=== PATIENT | male | born 1955 | race Native Hawaiian/Other Pacific Islander ===

== ENCOUNTER 2020-06-27 23:55 | Emergency (ER) | payer OTHER ==
[~2020-06-27] VITALS: Ht 172.7 cm; Wt 131.5 kg
[2020-06-27 23:55] VITALS: BP 119/52; TEMP 98
[2020-06-28 00:37] LABS: POTASSIUM 4.6 mmol/L (3.6-5.2)
[2020-06-28 00:42] LABS: PLATELET COUNT 183 K/uL (142-355)
[2020-06-28] MEDS ORDERED: TYLENOL325 MG PO (01:52)
[2020-06-28] MEDS ORDERED: LORA0.5T17 PO (01:53)
[2020-06-28] MEDS ORDERED: LIPITOR40 MG PO (01:55)
[2020-06-28] MEDS ORDERED: CARV12.5 PO (02:08)
[2020-06-28] MEDS ORDERED: D325 MCG PO (02:10)
[2020-06-28] MEDS ORDERED: FAMO20TA4 PO (02:11)
[2020-06-28] MEDS ORDERED: TAMS0.4C PO (02:12)
[2020-06-28] MEDS ORDERED: FLUTICASONE PRO1 AE1 INH (02:15)
[2020-06-28] MEDS ORDERED: NEURONTIN 100M100 MG PO (02:16)
[2020-06-28] MEDS ORDERED: INSULIN LI100 UNIT/1 SC (02:18)
[2020-06-28] MEDS ORDERED: ISOS30TA17 PO (02:19)
[2020-06-28] MEDS ORDERED: INSUINJP SC (02:21)
[2020-06-28] MEDS ORDERED: MIRALAX17 GM/SCOO PO (02:22)
[2020-06-28] MEDS ORDERED: LISI20TA11 PO (02:22)
[2020-06-28] MEDS ORDERED: SENNA PLUS 50-81 CAP PO (02:23)
[2020-06-28] MEDS ORDERED: SERT100T PO (02:25)
[2020-06-28] MEDS ORDERED: TRADJENTA5 M1 PO (02:26)
[2020-06-28] MEDS ORDERED: TRAZODONE HYDR100 MG PO (02:27)
[2020-06-28] MEDS ORDERED: ZIPRASIDONE HYD80 MG PO (02:28)
== END 2020-06-28 01:22 | disposition other institution (70) ==
LOC: ED 23:58
PROVIDERS: Family Medicine
DX: R45.851 Suicidal ideations (principal); F32.89 Other specified depressive episodes
CPT/HCPCS: 36415; 80053; 81000; 85027; 87635; 93005; 99283; U0003

== ENCOUNTER 2021-04-16 20:49 | Emergency (ER) | payer OTHER ==
[~2021-04-16] VITALS: Ht 180.3 cm; Wt 147.0 kg
[~2021-04-16 20:49] MED LIST: CARV12.5 PO; D325 MCG PO; DIVA250T PO; DIVALPROEX500 MG PO; FAMO20TA4 PO; FLUTICASONE PRO1 AE1 INH; FOLI1TAB26 PO; GABA100C2 PO; INSUINJ20 SC; INSUINJP SC; INSULIN LI100 UNIT/1 SC; ISOS30TA17 PO; LIPITOR80 MG PO; LISI20TA11 PO; LORA0.5T17 PO; MIRALAX17 GM/SCOO PO; NEURONTIN 100M100 MG PO; SENNA PLUS 50-81 CAP PO; SERT100T PO; SERT50TA PO; TAMS0.4C PO; TRADJENTA5 M1 PO; TRAZODONE HYDR100 MG PO; TYLENOL325 MG PO; ZIPRASIDONE HYD80 MG PO
[2021-04-16 20:52] VITALS: BP 126/70; TEMP 98.1
[2021-04-16 21:16] LABS: PLATELET COUNT 158 K/uL (142-355)
[2021-04-16 21:28] LABS: POTASSIUM 4.3 mmol/L (3.6-5.2)
[2021-04-17] MEDS ORDERED: ASPIRIN LOW DOS81 MG PO (07:45)
[2021-04-17] MEDS ORDERED: CLOPIDOGREL75 MG PO (07:49)
[2021-04-17] MEDS ORDERED: CELEXA20 MG PO (07:49)
[2021-04-17] MEDS ORDERED: DIVALPROEX500 M1 PO ×2 (07:57→08:56)
[2021-04-17] MEDS ORDERED: EZET10TA13 PO (07:59)
[2021-04-17] MEDS ORDERED: FOLIC ACID400 MCG PO (08:01)
[2021-04-17] MEDS ORDERED: LANTUS100 UNIT/M SC (08:03)
[2021-04-17] MEDS ORDERED: FUROSEMIDE20 MG PO (08:04)
[2021-04-17] MEDS ORDERED: COZAAR100 MG PO (08:05)
[2021-04-17] MEDS ORDERED: PROVERA5 MG PO (08:06)
[2021-04-17] MEDS ORDERED: MELATONIN5 M4 PO (08:07)
[2021-04-17] MEDS ORDERED: MULTIVITAMI1 PO (08:08)
[2021-04-17] MEDS ORDERED: POTASSIUM CHLO20 ME1 PO (08:10)
[2021-04-17] MEDS ORDERED: TRAZODONE HYDR100 MG PO (08:11)
[2021-04-17] MEDS ORDERED: TRADJENTA5 M1 PO (08:11)
[2021-04-17] MEDS ORDERED: VITAMIN B-COMPL1 TAB PO (08:13)
[2021-04-17] MEDS ORDERED: DOK100 MG PO (08:14)
[2021-04-17] MEDS ORDERED: MEMANTINE HYDRO10 MG PO (08:15)
[2021-04-17] MEDS ORDERED: METO50TA27 PO (08:16)
[2021-04-17] MEDS ORDERED: HYDRALAZINE HY100 MG PO (08:17)
[2021-04-17] MEDS ORDERED: INSU100P SC ×2 (08:19→09:10)
[2021-04-17] MEDS ORDERED: CLON0.1T16 PO (08:22)
[2021-04-17] MEDS ORDERED: APAP325 MG PO (08:51)
[2021-04-17] MEDS ORDERED: LIPITOR40 MG PO (08:52)
[2021-04-17] MEDS ORDERED: CARV12.5 PO (08:53)
[2021-04-17] MEDS ORDERED: [UNRECOGNIZED DRUG - CODE] PO (08:54)
[2021-04-17] MEDS ORDERED: DIVALPROEX250 MG PO (08:55)
[2021-04-17] MEDS ORDERED: ACID REDUCER20 MG PO (08:57)
[2021-04-17] MEDS ORDERED: FLUTMIS6 INH (09:02)
[2021-04-17] MEDS ORDERED: KP FOLIC ACID1 MG PO (09:03)
[2021-04-17] MEDS ORDERED: GABA100C2 PO (09:04)
[2021-04-17] MEDS ORDERED: ISOS30TA17 PO (09:05)
[2021-04-17] MEDS ORDERED: LISI20TA11 PO (09:06)
[2021-04-17] MEDS ORDERED: LEVEMIR FL100 UNIT/M SC (09:06)
[2021-04-17] MEDS ORDERED: MIRALAX17 GM PO (09:07)
[2021-04-17] MEDS ORDERED: NOVOLOG FL100 UNIT/M SC (09:08)
[2021-04-17] MEDS ORDERED: SENNA PLUS 50-81 CAP PO (09:11)
[2021-04-17] MEDS ORDERED: SERT50TA PO (09:12)
[2021-04-17] MEDS ORDERED: TAMSULOSIN0.4 MG PO (09:13)
[2021-04-17] MEDS ORDERED: ZIPR80CA PO (09:14)
[2021-04-17] MEDS ORDERED: TRAZODONE HYDRO50 MG PO (09:14)
== END 2021-04-16 21:58 | disposition still patient (30) ==
LOC: ED 20:49
PROVIDERS: Emergency Medicine
DX: F25.8 Other schizoaffective disorders (principal); R46.89 Other symptoms and signs involving appearance and behavior; E11.65 Type 2 diabetes mellitus with hyperglycemia; Z11.52 Encounter for screening for COVID-19; Z04.6 Encounter for general psychiatric examination, requested by authority
CPT/HCPCS: 36415; 80053; 81000; 85027; 87635; 93005; 99283; U0003

== ENCOUNTER 2021-05-18 19:15 | Emergency (ER) | payer OTHER ==
[~2021-05-18] VITALS: Ht 180.3 cm; Wt 142.4 kg
[~2021-05-18 19:15] MED LIST changes: +ACID REDUCER20 MG PO; +APAP325 MG PO; +ASPIRIN LOW DOS81 MG PO; +BUSP5TAB2 PO; +CELEXA20 MG PO; +CLON0.1T16 PO; +CLOPIDOGREL75 MG PO; +COZAAR100 MG PO; +DIVALPROEX250 MG PO; +DIVALPROEX500 M1 PO; +DOK100 MG PO; +EZET10TA13 PO; +FLUTMIS6 INH; +FOLIC ACID400 MCG PO; +FUROSEMIDE20 MG PO; +HYDRALAZINE HY100 MG PO; +INSU100P SC; +KP FOLIC ACID1 MG PO; +LANTUS100 UNIT/M SC; +LEVEMIR FL100 UNIT/M SC; +LIPITOR40 MG PO; +MELATONIN5 M4 PO; +MEMANTINE HYDRO10 MG PO; +METO50TA27 PO; +MIRALAX17 GM PO; +MULTIVITAMI1 PO; +NOVOLOG FL100 UNIT/M SC; +OLAN2.5T2 PO; +POTASSIUM CHLO20 ME1 PO; +PROVERA5 MG PO; +TAMSULOSIN0.4 MG PO; +TRAZ50TA36 PO; +TRAZODONE HYDRO50 MG PO; +VITAMIN B-COMPL1 TAB PO; +ZIPR80CA PO; +[UNRECOGNIZED DRUG - CODE] PO
[2021-05-18 19:20] VITALS: BP 153/86; TEMP 98.7
[2021-05-18 19:43] LABS: PLATELET COUNT 147 K/uL (142-355)
== END 2021-05-18 21:15 | disposition still patient (30) ==
LOC: ED 19:15
PROVIDERS: Emergency Medicine
DX: R46.89 Other symptoms and signs involving appearance and behavior (principal); F20.89 Other schizophrenia; E86.0 Dehydration; Z11.52 Encounter for screening for COVID-19; Z04.6 Encounter for general psychiatric examination, requested by authority
CPT/HCPCS: 36415; 80053; 81000; 85027; 87635; 93005; 96360; 99284; U0003